=== PATIENT | female | born 1980 | race Caucasian/White ===

== ENCOUNTER 2018-08-27 11:49 | Emergency (ER) | payer BC ==
[~2018-08-27] VITALS: Ht 170.2 cm; Wt 57.5 kg
[2018-08-27 14:52] LABS: BASOPHILS % (AUTO) 1.1 % (0-1); EOSINOPHILS % (AUTO) 0.1 % (0-6); HEMOGLOBIN 14.5 g/dl (12.0-16.0); LYMPHOCYTES # (AUTO) 0.6 X10'3 (1.1-4.8); MEAN CORPUSCULAR HGB CONC 33.6 % (33.0-36.5); MEAN CORPUSCULAR VOLUME 89.3 FL (78-98); MEAN PLATELET VOLUME 10.1 FL (7.4-10.4); MONOCYTES # (AUTO) 0.5 X10'3 (0-0.9); NEUTROPHILS # (AUTO) 1.7 X10'3 (1.8-7.7); NEUTROPHILS % (AUTO) 60.8 % (42-75); PLATELET COUNT 157 X10'3 (140-440); RED BLOOD COUNT 4.82 X10'6 (4.20-5.60); RED CELL DISTRIBUTION WIDTH 12.4 % (11.5-14.5); WHITE BLOOD COUNT 2.8 X10'3 (4.5-11.0)
[2018-08-27 14:58] LABS: CLARITY,URINE CLEAR (Clear); COLOR,URINE YELLOW (Yellow); GLUCOSE, URINE NEGATIVE (Neg); KETONES,URINE NEGATIVE (Neg); LEUKOCYTE ESTERASE ,URINE NEGATIVE (Neg); NITRITES, URINE NEGATIVE (Neg); OCCULT BLOOD,URINE MODERATE (Neg); PH,URINE 5.5 (4.8-8.0); PROTEIN,URINE NEGATIVE (Neg); URINE HCG NEGATIVE (NEG); UROBILINOGEN,URINE 0.2 E.U/dL (0.2-1.0)
[2018-08-27 15:00] LABS: UA COLLECTION TYPE CLN CATCH MIDSTREAM
[2018-08-27 15:01] LABS: PARTIAL THROMBOPLASTIN TIME 27 SECONDS (22-32); PROTHROMBIN TIME 10.4 SECONDS (9.0-12.0)
[2018-08-27 15:04] LABS: ALANINE AMINOTRANSFERASE 21 U/L (12-78); ALBUMIN 4.1 G/DL (3.4-5.0); ALBUMIN/GLOBULIN RATIO 1.2 (1.1-1.5); ALKALINE PHOSPHATASE 53 IU/L (46-116); ANION GAP 7 (8-16); ASPARTATE AMINO TRANSFERASE 19 U/L (10-37); BILIRUBIN,TOTAL 0.5 MG/DL (0.1-1.0); BLOOD UREA NITROGEN 8 MG/DL (7-18); BUN/CREATININE RATIO 9.6 (6.6-38.0); CHLORIDE 103 MMOL/L (99-107); CREATININE 0.83 MG/DL (0.40-0.90); GLUCOSE 94 MG/DL (70-104); MAGNESIUM 2.3 MG/DL (1.5-2.4); SODIUM 139 MMOL/L (135-145); TOTAL CARBON DIOXIDE 28.8 MMOL/L (24-32); TOTAL PROTEIN 7.6 G/DL (6.4-8.2); eGFR 77 ML/MIN
[2018-08-27 15:06] LABS: BACTERIA,URINE 1+ /HPF (Neg); HYALINE CASTS 0-3 /LPF (NEGATIVE); MUCUS STRANDS MODERATE /LPF (Neg); RBC,URINE 0-2 /HPF (0-2); SQUAMOUS EPITHELIAL CELL,UR MODERATE /LPF (FEW); WBC,URINE 0-4 /HPF (0-4)
[2018-08-27 15:27] LABS: PLATELET ESTIMATE NORMAL; TOTAL CELLS COUNTED 100
[2018-08-27 18:27] VITALS: BP 116/58
== END 2018-08-27 18:28 | disposition home or self-care (01) ==
LOC: ER 11:51
DX: R50.9 Fever, unspecified (principal); I74.8 Embolism and thrombosis of other arteries; R53.83 Other fatigue; R05 Cough; Z88.0 Allergy status to penicillin
CPT/HCPCS: 36415; 71045; 80053; 81001; 81025; 83605; 83735; 84145; 85025; 85610; 85651; 85730; 87040; 87502; 87503; 93005; 93306; 99284

== ENCOUNTER 2019-07-22 13:48 | Emergency (ER) | payer BC ==
[~2019-07-22] VITALS: Ht 170.2 cm; Wt 57.0 kg
[2019-07-22 14:41] LABS: BASOPHILS % (AUTO) 0.6 % (0-1); EOSINOPHILS # (AUTO) 0.1 X10'3 (0-0.9); EOSINOPHILS % (AUTO) 0.9 % (0-6); HEMATOCRIT 43.1 % (35.0-45.0); HEMOGLOBIN 14.6 g/dl (12.0-16.0); LYMPHOCYTES # (AUTO) 1.3 X10'3 (1.1-4.8); LYMPHOCYTES % (AUTO) 17.7 % (21-51); MEAN CORPUSCULAR HEMOGLOBIN 30.2 PG (27.0-31.0); MEAN CORPUSCULAR HGB CONC 33.8 g/dL (33.0-36.5); MEAN CORPUSCULAR VOLUME 89.4 FL (78-98); MEAN PLATELET VOLUME 9.8 FL (7.4-10.4); MONOCYTES # (AUTO) 0.5 X10'3 (0-0.9); MONOCYTES % (AUTO) 7.5 % (2-12); NEUTROPHILS # (AUTO) 5.3 X10'3 (1.8-7.7); NEUTROPHILS % (AUTO) 73.3 % (42-75); PLATELET COUNT 209 X10'3 (140-440); RED BLOOD COUNT 4.82 X10'6 (4.20-5.60); RED CELL DISTRIBUTION WIDTH 12.9 % (11.5-14.5); WHITE BLOOD COUNT 7.2 X10'3 (4.5-11.0)
[2019-07-22 14:52] LABS: ALANINE AMINOTRANSFERASE 21 U/L (12-78); ALBUMIN 4.2 G/DL (3.4-5.0); ALBUMIN/GLOBULIN RATIO 1.1 (1.1-1.5); ALKALINE PHOSPHATASE 65 IU/L (46-116); ANION GAP 7 (8-16); ASPARTATE AMINO TRANSFERASE 13 U/L (10-37); BILIRUBIN,TOTAL 0.6 MG/DL (0.1-1.0); BLOOD UREA NITROGEN 8 MG/DL (7-18); CALCIUM 8.7 MG/DL (8.5-10.1); CHLORIDE 105 MMOL/L (99-107); GLUCOSE 109 MG/DL (70-104); POTASSIUM 3.7 MMOL/L (3.5-5.1); SODIUM 143 MMOL/L (135-145); TOTAL CARBON DIOXIDE 31.2 MMOL/L (24-32); TOTAL PROTEIN 8.2 G/DL (6.4-8.2); eGFR 80 ML/MIN
--- NOTE | 2019-07-22 15:58 | NUR ---
PT C/O NOT FEELING WELL FOR 11 DAYS, COUGH, DIARRHEA AND DIZZINESS, LOYA, FATIGUE AND FEELING UNWELL. HAVING A HARD TIME GETTING OUT OF BED.
[2019-07-22 16:01] LABS: CLARITY,URINE CLEAR (Clear); COLOR,URINE STRAW (Yellow); GLUCOSE, URINE NEGATIVE (Neg); KETONES,URINE NEGATIVE (Neg); LEUKOCYTE ESTERASE ,URINE NEGATIVE (Neg); NITRITES, URINE NEGATIVE (Neg); OCCULT BLOOD,URINE NEGATIVE (Neg); PROTEIN,URINE NEGATIVE (Neg); UROBILINOGEN,URINE 0.2 E.U/dL (0.2-1.0)
[2019-07-22 16:21] LABS: UA COLLECTION TYPE CLN CATCH MIDSTREAM
[2019-07-22 17:00] VITALS: BP 101/53
== END 2019-07-22 17:02 | disposition home or self-care (01) ==
LOC: ER 13:49
DX: J40 Bronchitis, not specified as acute or chronic (principal); R42 Dizziness and giddiness; R53.83 Other fatigue; F12.90 Cannabis use, unspecified, uncomplicated; Z88.0 Allergy status to penicillin; Z88.5 Allergy status to narcotic agent
CPT/HCPCS: 36415; 71045; 80053; 81003; 85025; 93005; 93306; 99284

== ENCOUNTER 2023-12-18 05:38 | Inpatient (IN) | payer BC ==
[~2023-12-18] VITALS: Ht 172.7 cm; Wt 136.4 kg
[2023-12-18 06:23] LABS: ALANINE AMINOTRANSFERASE 12 U/L (12-78); ALBUMIN 3.8 G/DL (3.4-5.0); ALBUMIN/GLOBULIN RATIO 1.2 (1.1-1.5); ALKALINE PHOSPHATASE 41 IU/L (46-116); ANION GAP 23 (8-16); ASPARTATE AMINO TRANSFERASE 26 U/L (10-37); BLOOD UREA NITROGEN 8 MG/DL (7-18); BUN/CREATININE RATIO 8.2 (10.0-20.0); CALCIUM 8.8 MG/DL (8.5-10.1); CHLORIDE 104 MMOL/L (99-107); CREATININE 0.98 MG/DL (0.40-0.90); GLUCOSE 127 MG/DL (70-104); HEMATOCRIT 38.5 % (35.0-45.0); HEMOGLOBIN 12.9 g/dl (12.0-16.0); MEAN CORPUSCULAR HGB CONC 33.5 g/dL (33.0-36.5); MEAN PLATELET VOLUME 10.1 FL (7.4-10.4); POTASSIUM 3.6 MMOL/L (3.5-5.1); SODIUM 142 MMOL/L (135-145); TOTAL CARBON DIOXIDE 15.4 MMOL/L (24-32); TOTAL PROTEIN 7.1 G/DL (6.4-8.2); eCRCL 75 ML/MIN; eGFR 62 ML/MIN
[2023-12-18 06:26] LABS: BASOPHILS % (AUTO) 0.3 % (0-1); EOSINOPHILS % (AUTO) 0.1 % (0-6); LYMPHOCYTES % (AUTO) 13.4 % (21-51); MEAN CORPUSCULAR HEMOGLOBIN 30.5 PG (27.0-31.0); MEAN CORPUSCULAR VOLUME 91.1 FL (78-98); MONOCYTES # (AUTO) 1.1 X10'3 (0-0.9); MONOCYTES % (AUTO) 7.4 % (2-12); NEUTROPHILS % (AUTO) 78.8 % (42-75); PLATELET COUNT 185 X10'3 (140-440); RED BLOOD COUNT 4.22 X10'6 (4.20-5.60); WHITE BLOOD COUNT 15.2 X10'3 (4.5-11.0)
[2023-12-18] MEDS: vancomycin 1,750 MG in NS 350ml IV soln IV ONE (07:01)
[2023-12-18 07:12] LABS: CREATINE KINASE 619 U/L (26-192); ETHANOL < 10 MG/DL (<10); LIPASE 33 U/L (16-77); MAGNESIUM 2.2 MG/DL (1.5-2.4); THYROID STIMULATING HORMONE 3.94 ulU/ml (0.34-4.50)
[2023-12-18] MEDS: normal saline 1000ML IV soln IV ONE (07:20)
[2023-12-18] MEDS: levetiracetam inj 1,000 MG in normal saline 100ml IV soln 100 ML IV ONE (07:21)
[2023-12-18] MEDS: LORazepam 2 mg/ml vial IV ONE ×5 (07:21→16:10)
[2023-12-18] MEDS: acetaminophen 325mg tablet PO STA (07:22)
[2023-12-18] MEDS: LidoCAINE 2% Topical Jelly 11mL syringe TOP ONE (07:49)
[2023-12-18] MEDS: CefTRIAXone 2gm/D5W 50ml BAG 50 ML IV ONE (07:49)
[2023-12-18] MEDS: diphenhydrAMINE 50 mg/ml inj IV ONE ×2 (08:10→08:55)
[2023-12-18 08:12] LABS: BILIRUBIN,URINE NEGATIVE (Neg); CLARITY,URINE CLEAR (Clear); COLOR,URINE YELLOW (Yellow); GLUCOSE, URINE NEGATIVE (Neg); KETONES,URINE 15 mg/dl (Neg); LEUKOCYTE ESTERASE ,URINE NEGATIVE (Neg); NITRITES, URINE NEGATIVE (Neg); OCCULT BLOOD,URINE TRACE-INTACT (Neg); PH,URINE 5.5 (4.8-8.0); PROTEIN,URINE TRACE mg/dl (Neg); UROBILINOGEN,URINE 0.2 E.U/dL (0.2-1.0)
[2023-12-18 08:13] LABS: URINE HCG NEGATIVE (NEG)
[2023-12-18 08:20] LABS: URINE AMPHETAMINE SCREEN NEGATIVE (Neg); URINE BARBITUATE SCREEN NEGATIVE (Neg); URINE BENZODIAZEPINES SCREEN NEGATIVE (Neg); URINE CANNABINOID SCREEN POSITIVE (Neg); URINE COCAINE SCREEN NEGATIVE (Neg); URINE METHADONE SCREEN NEGATIVE (Neg); URINE OPIATE SCREEN NEGATIVE (Neg); URINE PHENCYCLIDINE SCREEN NEGATIVE (Neg)
[2023-12-18 08:31] LABS: UA COLLECTION TYPE FOLEY CATH
[2023-12-18 09:19] LABS: MUCUS STRANDS MODERATE /LPF (Neg); SQUAMOUS EPITHELIAL CELL,UR MANY /LPF (FEW)
[2023-12-18 09:20] LABS: BACTERIA,URINE NONE SEEN /HPF (Neg); RBC,URINE 0-2 /HPF (0-2); TRANSITIONAL EPI CELLS,URINE FEW /HPF; WBC,URINE 0-4 /HPF (0-4)
[2023-12-18 09:43] LABS: ABG BASE EXCESS -4.5 mmol/L (-2.0-2.0); ABG HCO3 19.7 mmol/L (22.0-26.0); ABG OXYGEN SATURATION 90.5 % (94-97); ABG PCO2 (T) 34.1 mmHg (32.0-45.0); ABG PH (T) 7.381 (7.350-7.450); ABG PO2 (T) 63.6 mmHg (75.0-100.0); FCOHb 0.3 % (0.0-3.9); FHHb 9.5 % (0.0-5.0); FLOW 0 L/min; FMetHb 0.2 % (0.0-1.5); MODE ROOM AIR; PATIENT TEMPERATURE 37.4; TOTAL HEMOGLOBIN 12.5 G/dl (12.0-16.0)
[2023-12-18 10:06] LABS: APTT 25 SECONDS (22-32); INR 1.1 INR; PROTHROMBIN TIME 11.4 SECONDS (9.0-12.0)
[2023-12-18] MEDS ORDERED: LORazepam 2 mg/ml vial IV PRN (12:35)
[2023-12-18] MEDS: normal saline 500ml IV soln 500 ML IV ONE (12:36)
[2023-12-18] MEDS: haloperidol lactate 5mg/ml inj IM ONE ×2 (13:09→14:32)
[2023-12-18] MEDS: normal saline 1000ML IV soln IVB ONE ×2 (13:10→14:33)
[2023-12-18] MEDS: ketamine 50 mg/ml 10ml vial IV ONE ×2 (13:14→13:40)
[2023-12-18] MEDS: ketamine 10mg/ml 20ml inj vial IV ONE (14:32)
[2023-12-18] MEDS: BUPIVAcaine 0.5% W/EPI /PF 30ml vial IJ STA (15:12)
[2023-12-18] MEDS ORDERED: magnesium hydroxide 30ml (MOM) UD suspension PO PRN (16:05)
[2023-12-18] MEDS ORDERED: magnesium Cl slow-release 64mg tablet PO PRN (16:05)
[2023-12-18] MEDS ORDERED: magnesium 4gm in 100ml NS 100 ML IV PRN (16:05)
[2023-12-18] MEDS ORDERED: potassium Cl 20 mEq SR tablet PO PRN (16:05)
[2023-12-18] MEDS ORDERED: ondansetron/PF 4mg/2ml inj IV PRN (16:05)
[2023-12-18] MEDS ORDERED: magnesium 2GM in 50ml NS 50 ML IV PRN (16:05)
[2023-12-18] MEDS ORDERED: mag hydrox/Alum hydrox/simeth 30ml oral suspension PO PRN (16:05)
[2023-12-18] MEDS: fentaNYL 50MCG/ML 2ML intranasal KIT (WASTE REMAINDER W/WITNESS) NAS STA (16:31)
[2023-12-18] MEDS: DEXMEDETOMIDINE 400MCG in NORMAL SALINE 100ml IV SCH (16:40)
[2023-12-18] MEDS: BUPIVAcaine 0.5% W/EPI /PF 10ml vial IJ STA (17:15)
[2023-12-18] MEDS: normal saline 1000ml 1,000 ML IV ONE (17:55)
[2023-12-18 18:52] LABS: GLUCOSE,CSF 68 MG/DL (40-75); TOTAL PROTEIN,CSF 51 MG/DL (15-45)
[2023-12-18 19:15] VITALS: BP 118/63; PULSE 74; RESP 14; O2SAT 88
[2023-12-18 19:48] LABS: APPEARANCE,CSF CLEAR; CSF SUPERNATANT COLOR COLORLESS; CSF VOLUME 12 ML; TUBE# COUNTED 1
[2023-12-18 19:49] LABS: CSF RBC 465 /CU MM (0)
[2023-12-18 19:53] LABS: CSF WBC CT 5 /CU MM (0-5)
[2023-12-18 20:00] VITALS: BP 122/64; PULSE 54; RESP 14; RESP 20; O2SAT 92
[2023-12-18] MEDS: K and/or MAG REPLACEMENT MC SCH (20:00)
[2023-12-18] MEDS: docusate sod 100mg capsule PO SCH (20:00)
[2023-12-18 20:24] LABS: APPEARANCE,CSF CLEAR; CSF RBC 470 /CU MM (0); CSF SUPERNATANT COLOR COLORLESS; CSF VOLUME 12 ML; TUBE# COUNTED 4
[2023-12-18] MEDS: CefTRIAXone 2gm/D5W 50ml BAG 50 ML IV SCH (20:35)
[2023-12-18] MEDS: levetiracetam inj 1,000 MG in normal saline 100ml IV soln 100 ML IV SCH (20:36)
[2023-12-18 21:00] VITALS: BP 128/64; PULSE 52; RESP 17; O2SAT 94
[2023-12-18 22:00] VITALS: BP 139/71; PULSE 45; RESP 19; O2SAT 96
[2023-12-18 22:58] LABS: CSF WBC CT 3 /CU MM (0-5)
[2023-12-18 23:00] VITALS: BP 131/75; PULSE 45; RESP 20; O2SAT 93
[2023-12-19] VITALS (19 sets, daily range): BP systolic 92–145; BP diastolic 40–75; PULSE 39–95; RESP 13–22; TEMP 98.2–99.4; O2SAT 94–99
[2023-12-19] MEDS: vancomycin/NS 1 GM ADD-VANTAGE 250 ML IV SCH (01:19)
[2023-12-19 06:07] LABS: BASOPHILS # (AUTO) 0.1 X10'3 (0-0.2); BASOPHILS % (AUTO) 0.6 % (0-1); EOSINOPHILS # (AUTO) 0.2 X10'3 (0-0.9); EOSINOPHILS % (AUTO) 2.2 % (0-6); HEMATOCRIT 36.9 % (35.0-45.0); HEMOGLOBIN 12.5 g/dl (12.0-16.0); LYMPHOCYTES # (AUTO) 1.4 X10'3 (1.1-4.8); MEAN CORPUSCULAR HEMOGLOBIN 30.7 PG (27.0-31.0); MEAN CORPUSCULAR VOLUME 90.3 FL (78-98); MEAN PLATELET VOLUME 10.3 FL (7.4-10.4); MONOCYTES # (AUTO) 0.5 X10'3 (0-0.9); MONOCYTES % (AUTO) 4.7 % (2-12); NEUTROPHILS # (AUTO) 9.2 X10'3 (1.8-7.7); NEUTROPHILS % (AUTO) 80.5 % (42-75); PLATELET COUNT 140 X10'3 (140-440); RED BLOOD COUNT 4.09 X10'6 (4.20-5.60); RED CELL DISTRIBUTION WIDTH 12.7 % (11.5-14.5); WHITE BLOOD COUNT 11.4 X10'3 (4.5-11.0)
[2023-12-19 06:30] LABS: ALBUMIN 2.7 G/DL (3.4-5.0); ANION GAP 16 (8-16); BLOOD UREA NITROGEN 6 MG/DL (7-18); BUN/CREATININE RATIO 11.1 (10.0-20.0); CALCIUM 7.8 MG/DL (8.5-10.1); CHLORIDE 113 MMOL/L (99-107); CREATININE 0.54 MG/DL (0.40-0.90); GLUCOSE 90 MG/DL (70-104); MAGNESIUM 1.8 MG/DL (1.5-2.4); PHOSPHORUS 2.5 MG/DL (2.3-4.5); SODIUM 147 MMOL/L (135-145); eCRCL 136 ML/MIN; eGFR > 90 ML/MIN
[2023-12-19 06:36] LABS: POTASSIUM 2.9 MMOL/L (3.5-5.1)
[2023-12-19] MEDS: potassium Cl 40MEQ/1/2NS 520ml 520 ML IV PRN (07:47)
[2023-12-19] MEDS ORDERED: NO HOME MEDS (10:53)
[2023-12-19] MEDS: QUEtiapine 25mg tablet PO SCH (11:13)
[2023-12-19] MEDS: acetaminophen 325mg tablet PO PRN (11:40)
[2023-12-20] MEDS: VANCOMYCIN LEVEL IV ONE ×2 (01:00→12:30)
[2023-12-20 06:00] VITALS: BP 103/46; PULSE 94; RESP 18; TEMP 98.9; O2SAT 98
[2023-12-20 08:00] VITALS: RESP 16; O2SAT 99
[2023-12-20 08:46] LABS: BASOPHILS # (AUTO) 0.1 X10'3 (0-0.2); BASOPHILS % (AUTO) 0.6 % (0-1); EOSINOPHILS # (AUTO) 0.4 X10'3 (0-0.9); EOSINOPHILS % (AUTO) 3.7 % (0-6); HEMATOCRIT 35.1 % (35.0-45.0); HEMOGLOBIN 12.1 g/dl (12.0-16.0); LYMPHOCYTES # (AUTO) 1.4 X10'3 (1.1-4.8); LYMPHOCYTES % (AUTO) 13.2 % (21-51); MEAN CORPUSCULAR HGB CONC 34.6 g/dL (33.0-36.5); MEAN CORPUSCULAR VOLUME 89.7 FL (78-98); MEAN PLATELET VOLUME 9.6 FL (7.4-10.4); MONOCYTES # (AUTO) 0.9 X10'3 (0-0.9); MONOCYTES % (AUTO) 8.3 % (2-12); NEUTROPHILS # (AUTO) 7.9 X10'3 (1.8-7.7); NEUTROPHILS % (AUTO) 74.2 % (42-75); PLATELET COUNT 172 X10'3 (140-440); RED BLOOD COUNT 3.91 X10'6 (4.20-5.60); RED CELL DISTRIBUTION WIDTH 12.9 % (11.5-14.5); WHITE BLOOD COUNT 10.6 X10'3 (4.5-11.0)
[2023-12-20 09:04] LABS: ALBUMIN 2.7 G/DL (3.4-5.0); ANION GAP 9 (8-16); BLOOD UREA NITROGEN 4 MG/DL (7-18); BUN/CREATININE RATIO 5.7 (10.0-20.0); CALCIUM 7.6 MG/DL (8.5-10.1); CHLORIDE 110 MMOL/L (99-107); GLUCOSE 107 MG/DL (70-104); MAGNESIUM 1.6 MG/DL (1.5-2.4); POTASSIUM 3.1 MMOL/L (3.5-5.1); SODIUM 143 MMOL/L (135-145); TOTAL CARBON DIOXIDE 23.7 MMOL/L (24-32); eCRCL 105 ML/MIN; eGFR > 90 ML/MIN
[2023-12-20 10:00] VITALS: BP 117/59; PULSE 107; RESP 16; TEMP 98.4; O2SAT 96
[2023-12-20] MEDS: potassium Cl 20 mEq SR tablet PO PRN (11:33)
[2023-12-20 18:00] VITALS: BP 101/54; PULSE 63; RESP 16; TEMP 97.9; O2SAT 100
[2023-12-20 22:00] VITALS: BP 112/48; PULSE 76; RESP 17; TEMP 98.4; O2SAT 96
[2023-12-21] MEDS: VANCOMYCIN LEVEL IV ONE (00:31)
[2023-12-21 06:00] VITALS: BP 99/39; PULSE 51; RESP 18; TEMP 98.9; O2SAT 99
[2023-12-21 08:34] LABS: BASOPHILS # (AUTO) 0.1 X10'3 (0-0.2); BASOPHILS % (AUTO) 0.6 % (0-1); EOSINOPHILS # (AUTO) 0.5 X10'3 (0-0.9); EOSINOPHILS % (AUTO) 5.2 % (0-6); HEMATOCRIT 37.6 % (35.0-45.0); HEMOGLOBIN 12.8 g/dl (12.0-16.0); LYMPHOCYTES # (AUTO) 1.1 X10'3 (1.1-4.8); LYMPHOCYTES % (AUTO) 12.2 % (21-51); MEAN CORPUSCULAR HEMOGLOBIN 30.6 PG (27.0-31.0); MEAN CORPUSCULAR HGB CONC 34.1 g/dL (33.0-36.5); MEAN CORPUSCULAR VOLUME 89.7 FL (78-98); MEAN PLATELET VOLUME 10.3 FL (7.4-10.4); MONOCYTES # (AUTO) 0.8 X10'3 (0-0.9); MONOCYTES % (AUTO) 8.4 % (2-12); NEUTROPHILS # (AUTO) 6.8 X10'3 (1.8-7.7); NEUTROPHILS % (AUTO) 73.6 % (42-75); PLATELET COUNT 177 X10'3 (140-440); RED CELL DISTRIBUTION WIDTH 12.9 % (11.5-14.5); WHITE BLOOD COUNT 9.3 X10'3 (4.5-11.0)
[2023-12-21 10:00] VITALS: BP 122/44; PULSE 77; RESP 18; TEMP 98.9; O2SAT 97
[2023-12-21 10:06] LABS: ALBUMIN 3.1 G/DL (3.4-5.0); ANION GAP 13 (8-16); BLOOD UREA NITROGEN 5 MG/DL (7-18); BUN/CREATININE RATIO 7.2 (10.0-20.0); CALCIUM 8.8 MG/DL (8.5-10.1); CHLORIDE 111 MMOL/L (99-107); CREATININE 0.69 MG/DL (0.40-0.90); GLUCOSE 105 MG/DL (70-104); MAGNESIUM 1.9 MG/DL (1.5-2.4); PHOSPHORUS 3.9 MG/DL (2.3-4.5); POTASSIUM 3.4 MMOL/L (3.5-5.1); SODIUM 147 MMOL/L (135-145); eCRCL 106 ML/MIN; eGFR > 90 ML/MIN
[2023-12-21] MEDS ORDERED: VANCOmycin 1250MG/NS 250ml Bag 250 ML IV SCH (13:00)
[2023-12-21] MEDS ORDERED: LEVE10002 PO (15:30)
[2023-12-22 09:54] LABS: HSV 1 PCR Negative (Negative); HSV 2 PCR Negative (Negative)
[2023-12-22 16:31] LABS: CRYPTOCOCCUS AG TITER, CSF Not Indicated (.); CRYPTOCOCCUS ANTIGEN, CSF Negative (Negative)
[2023-12-23] MEDS ORDERED: VANCOMYCIN LEVEL IJ ONE (00:30)
[2023-12-24 13:20] LABS: CSF WEST NILE VIRUS, IGM Negative (Negative)
== END 2023-12-21 16:30 | disposition home or self-care (01) | DRG 871 ==
LOC: ER 05:39 → UNDOADMIN 11:41 → ED HOLD 11:41 → EDBEDREQSVC 17:21 → EDBEDREQTM 17:21 → ED HOLD 19:14 → CICU 2S 19:14 → ORTHO 4S 12-19 18:03
PROVIDERS: ADMIT Internal Medicine Critical Care Medicine; ATTEND Internal Medicine Critical Care Medicine
PROC: 00JU3ZZ Inspection of Spinal Canal, Percutaneous Approach (ICD-10-PCS; principal; 2023-12-18)
PROC: 4A00X4Z Measurement of Central Nervous Electrical Activity, External Approach (ICD-10-PCS; 2023-12-18)
DX: A41.9 Sepsis, unspecified organism (principal); G03.9 Meningitis, unspecified; R73.9 Hyperglycemia, unspecified; Z20.822 Contact with and (suspected) exposure to COVID-19; F12.90 Cannabis use, unspecified, uncomplicated; R74.8 Abnormal levels of other serum enzymes; F41.9 Anxiety disorder, unspecified; F43.10 Post-traumatic stress disorder, unspecified; G40.901 Epilepsy, unspecified, not intractable, with status epilepticus; Z91.041 Radiographic dye allergy status; Z88.5 Allergy status to narcotic agent; Z88.0 Allergy status to penicillin
CPT/HCPCS: 36415; 36600; 70450; 70490; 70551; 71045; 80048; 80053; 80202; 80305; 80320; 81001; 81025; 82550; 82803; 82945; 82948; 83605; 83690; 83735; 84100; 84132; 84145; 84157; 84443; 84484; 85018; 85025; 85610; 85651; 85730; 86592; 86617; 86788; 86789; 87015; 87040; 87070; 87210; 87529; 87634; 87811; 87899; 89051; 93005; 95720; 96365; 96366; 96368; 96375; 96376; 99285; A4615; A4620; A5200; A6258; A6449; C1758; G0378; J0696; J1200; J1630; J1953; J2060; J3370; J3480; J3490; J7030; J7040

== ENCOUNTER 2024-01-02 15:59 | Emergency (ER) | payer BC ==
[~2024-01-02] VITALS: Ht 167.6 cm; Wt 63.6 kg
[~2024-01-02 15:59] MED LIST: LEVE10002 PO; NO HOME MEDS
[2024-01-02] MEDS ORDERED: LACOSAMIDE 200mg/20ml inj. 100 MG in normal saline 100ml IV soln 100 ML IV SCH (21:00)
[2024-01-02] MEDS: LACOSAMIDE 200mg/20ml inj. 100 MG in normal saline 100ml IV soln 100 ML IV ONE (21:21)
[2024-01-02] MEDS ORDERED: LACO100T2 PO (22:18)
[2024-01-02 22:26] VITALS: BP 103/54; PULSE 66; RESP 16; TEMP 97.8; O2SAT 100
== END 2024-01-02 22:28 | disposition home or self-care (01) ==
LOC: ER 16:00
DX: R56.9 Unspecified convulsions (principal); T42.6X5A Adverse effect of other antiepileptic and sedative-hypnotic drugs, initial encounter; F12.90 Cannabis use, unspecified, uncomplicated; Z91.041 Radiographic dye allergy status; Z88.0 Allergy status to penicillin; Z88.5 Allergy status to narcotic agent; Z79.899 Other long term (current) drug therapy; Y92.89 Other specified places as the place of occurrence of the external cause
CPT/HCPCS: 96365; 99284; C9254; J3490

== ENCOUNTER 2024-06-24 17:06 | Emergency (ER) | payer BC ==
[~2024-06-24] VITALS: Ht 170.2 cm; Wt 59.0 kg
[~2024-06-24 17:06] MED LIST changes: +LACO100T2 PO
[2024-06-24] MEDS ORDERED: LACO100T2 PO (18:16)
[2024-06-24] MEDS: acetaminophen 325mg tablet PO ONE (18:31)
[2024-06-24] MEDS: ibuprofen tablet 400 MG TABLET PO ONE (18:53)
[2024-06-24] MEDS: LORazepam 2 mg/ml vial IM ONE (19:33)
[2024-06-24 20:00] VITALS: O2SAT 98
[2024-06-24] MEDS ORDERED: LACOSAMIDE (Vimpat) 100mg/10ml (10 MG/ML) oral UD solution PO SCH (20:00)
[2024-06-24] MEDS: LACOSAMIDE (Vimpat) 100mg/10ml (10 MG/ML) oral UD solution PO ONE (20:04)
[2024-06-24 20:44] VITALS: BP 116/57; PULSE 65; RESP 12
== END 2024-06-24 20:45 | disposition home or self-care (01) ==
LOC: ER 17:07
DX: G40.909 Epilepsy, unspecified, not intractable, without status epilepticus (principal); F12.90 Cannabis use, unspecified, uncomplicated; Z91.041 Radiographic dye allergy status; Z88.0 Allergy status to penicillin; Z88.5 Allergy status to narcotic agent; Z79.899 Other long term (current) drug therapy
CPT/HCPCS: 70450; 96372; 99285; J2060

== ENCOUNTER 2025-06-22 15:01 | Outpatient (CLI) | payer BC ==
--- NOTE | 2025-06-22 19:47 | RADIOLOGY REPORT ---
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 FINDINGS: The liver is borderline enlarged at 18.4 cm in length. The liver surface appears smooth. There is no intrahepatic biliary ductal dilatation. The common bile duct measures 4 mm. The gallbladder is absent. The spleen is normal in size. The visualized portion of the pancreas is unremarkable. The right kidney measures 10.7 cm. The left kidney measures 10.7 cm. There is no hydronephrosis or nephrolithiasis. There is no evidence of focal renal mass or cyst. No intraluminal bladder mass is identified. Bilateral ureteral jets are identified during this study. The initial bladder volume is approximately 538 cc. There is a small postvoid residual of approximately 68 cc. The visualized portions of the abdominal aorta demonstrate no evidence of aneurysmal dilatation. The visualized inferior vena cava is unremarkable. There is no free intraperitoneal fluid. IMPRESSION: Small postvoid residual. Normal sonographic appearance of the kidneys. Borderline hepatomegaly at 18.4 cm in length. This may be normal in a patient of tall stature.
== END 2025-06-22 23:59 | disposition home or self-care (01) ==
LOC: RAD 15:01
PROVIDERS: ATTEND Family Medicine
DX: N30.10 Interstitial cystitis (chronic) without hematuria (principal)
CPT/HCPCS: 76700